=== PATIENT | male | born 1995 | race Caucasian/White ===

== ENCOUNTER 2024-09-09 14:27 | Emergency (ER) | payer OTHER ==
[2024-09-09 14:34] VITALS: BP 128/66; PULSE 83; RESP 18; TEMP 97.8
[2024-09-09 15:36] LABS: Basophils % (A) 0 %; Eosinophils % (A) 0 %; HCT 45.9 % (39.0-53.0); HGB 14.7 gm/dL (13.0-17.5); Lymphocytes # (A) 1.5 k/uL (1.0-4.8); Lymphocytes % (A) 11 %; MCH 29.8 pg (25.0-35.0); MCHC 32.1 g/dL (31.0-37.0); MCV 92.8 fL (80.0-100.0); Mean Platelet Volume 7.7; Monocytes # (A) 0.9 k/uL (0-1.0); Monocytes % (A) 7 %; Neutrophils # (A) 10.8 k/uL (1.3-7.7); Neutrophils % (A) 80 %; Platelet Count 245 k/uL (150-450); RBC 4.95 m/uL (4.30-5.90); WBC 13.5 k/uL (3.8-10.6)
--- NOTE | 2024-09-09 15:40 | ED ---
Abdominal Pain HPI - General Chief Complaint: Abdominal Pain Stated Complaint: Abd Pain Time Seen by Provider: 09/09/24 15:29 Source: patient, EMS, RN notes reviewed, old records reviewed Mode of arrival: EMS Limitations: no limitations - History of Present Illness Initial Comments: This is a 29-year-old male to the ER today. He presents today for evaluation regards to abdominal pain epigastric abdominal pain after eating tonight. Patient has history of ulcers but this was 20 years ago patient has mild nausea no vomiting no fevers, patient comes from [place] MD Complaint: abdominal pain -: hour(s) Location: epigastric Radiation: epigastric Migration to: epigastric Severity: mild Severity scale (1-10): 4 Quality: cramping, stabbing Consistency: intermittent Improves With: nothing Worsens With: nothing Associated Symptoms: nausea Treatments Prior to Arrival: other (0) - Related Data Allergies Allergy/AdvReac Type Severity Reaction Status Date / Time No Known Allergies Allergy Verified 09/09/24 14:34 Review of Systems ROS Statement: Those systems with pertinent positive or pertinent negative responses have been documented in the HPI. ROS Other: All systems not noted in ROS Statement are negative. Past Medical History Additional Past Medical History / Comment(s): Esophageal ulcers History of Any Multi-Drug Resistant Organisms: None Reported Past Surgical History: No Surgical Hx Reported Past Psychological History: No Psychological Hx Reported Smoking Status: Current every day smoker Past Alcohol Use History: None Reported Past Drug Use History: Marijuana, Opiates General Exam Limitations: no limitations General appearance: alert, in no apparent distress Head exam: Present: atraumatic, normocephalic, normal inspection Eye exam: Present: normal appearance, PERRL, EOMI. Absent: scleral icterus, conjunctival injection, periorbital swelling ENT exam: Present: normal exam, mucous membranes moist Neck exam: Present: normal inspection. Absent: tenderness, meningismus, lymphadenopathy Respiratory exam: Present: normal lung sounds bilaterally. Absent: respiratory distress, wheezes, rales, rhonchi, stridor Cardiovascular Exam: Present: regular rate, normal rhythm, normal heart sounds. Absent: systolic murmur, diastolic murmur, rubs, gallop, clicks GI/Abdominal exam: Present: soft, normal bowel sounds. Absent: distended, tenderness, guarding, rebound, rigid Extremities exam: Present: normal inspection, full ROM, normal capillary refill. Absent: tenderness, pedal edema, joint swelling, calf tenderness Back exam: Present: normal inspection Neurological exam: Present: alert, oriented X3, CN II-XII intact Psychiatric exam: Present: normal affect, normal mood Skin exam: Present: warm, dry, intact, normal color. Absent: rash Course Vital Signs 09/09/24 14:30 Temperature 97.8 F Pulse Rate 83 Respiratory 18 Rate Blood Pressure 128/66 O2 Sat by Pulse 98 Oximetry - Reevaluation(s) Reevaluation #1: 09/09/24 16:44 Medical records reviewed Reevaluation #2: 09/09/24 16:44 Patient symptoms unchanged Reevaluation #3: 09/09/24 16:44 Patient informed of results and questions answered Reevaluation #4: Was pt. sent in by a medical professional or institution ([facility], [facility], urgent care, hospital, or jail...) When possible be specific @ -no Did you speak to anyone other than the patient for history (EMS, parent, family, police, friend...)? What history was obtained from this source @ -no Did you review nursing and triage notes (agree or disagree)? Why? @ -agree Are old charts reviewed (outside hosp., previous admission, EMS record, old EKG, old radiological studies, urgent care reports/EKG's, jail records)? Report findings @ -yes Differential Diagnosis (chest pain, altered mental status, abdominal pain women, abdominal pain men, vaginal bleeding, weakness, fever, dyspnea, syncope, headache, dizziness, GI bleed, back pain, seizure, CVA, palpatations, mental health, musculoskeletal)? @ -prior EKG interpreted by me (3pts min.). @ -yes X-rays interpreted by me (1pt min.). @ -yes negative for acute disease CT interpreted by me (1pt min.). @ -no U/S interpreted by me (1pt. min.). @ -no What testing was considered but not performed or refused? (CT, X-rays, U/S, labs)? Why? @ -none What meds were considered but not given or refused? Why? @ -none Did you discuss the management of the patient with other professionals (professionals i.e. , [facility], [facility], lab, RT, psych nurse, social secretary, lion tamer, teacher, mortgage loan officer, case aide)? Give summary @ -no Was smoking cessation discussed for >3mins.? @ -no Was critical care preformed (if so, how long)? @ -no Were there social determinants of health that impacted care today? How? (Homelessness, low income, unemployed, alcoholism, drug addiction, transportation, low edu. Level, literacy, decrease access to med. care, longterm, rehab)? @ -none Was there de-escalation of care discussed even if they declined (Discuss DNR or withdrawal of care, Hospice)? DNR status @ -no What co-morbidities impacted this encounter? (DM, HTN, Smoking, COPD, CAD, Cancer, CVA, ARF, Chemo, Hep., AIDS, mental health diagnosis, sleep apnea, morbid obesity)? @ -none Was patient admitted / discharged? Hospital course, mention meds given and route, prescriptions, significant lab abnormalities, going to OR and other pertinent info. @ - Undiagnosed new problem with uncertain prognosis? @ -no Drug Therapy requiring intensive monitoring for toxicity (Heparin, Nitro, Insulin, Cardizem)? @ -no Were any procedures done? @ -no Diagnosis/symptom? @ - Acute, or Chronic, or Acute on Chronic? @ -Acute Uncomplicated (without systemic symptoms) or Complicated (systemic symptoms)? @ -Complicated Side effects of treatment? @ -no Exacerbation, Progression, or Severe Exacerbation? @ -exacerbation Poses a threat to life or bodily function? How? (Chest pain, USA, SC, pneumonia, PE, COPD, DKA, ARF, appy, cholecystitis, CVA, Diverticulitis, Homicidal, Suici taylor, threat to staff... and all critical care pts) @ -yes Reevaluation #5: Differential Abdominal Pain Men: Appendicitis, cholecystitis, diverticulosis, ischemic bowel, pancreatitis, hepatitis, UTI, gastroenteritis, AAA, incarcerated hernia, bowel obstruction, constipation, inflammatory bowel, hepatitis, peptic ulcer disease, splenic infarction, perforated viscus, testicular torsion, this is not meant to be an all-inclusive list Medical Decision Making - Medical Decision Making 29 male for abdominal pain. Likely gastritis patient has no acute findings here in the ER and can be discharged home - Lab Data Result diagrams: 09/09/24 15:19 09/09/24 15:19 Lab Results 09/09/24 09/09/24 09/09/24 Range/Units 15:19 15:19 15:19 WBC 13.5 H (3.8-10.6) k/uL RBC 4.95 (4.30-5.90) m/uL Hgb 14.7 (13.0-17.5) gm/dL Hct 45.9 (39.0-53.0) % MCV 92.8 (80.0-100.0) fL MCH 29.8 (25.0-35.0) pg MCHC 32.1 (31.0-37.0) g/dL RDW 13.0 (11.5-15.5) % Plt Count 245 (150-450) k/uL MPV 7.7 Neutrophils % 80 % Lymphocytes % 11 % Monocytes % 7 % Eosinophils % 0 % Basophils % 0 % Neutrophils # 10.8 H (1.3-7.7) k/uL Lymphocytes # 1.5 (1.0-4.8) k/uL Monocytes # 0.9 (0-1.0) k/uL Eosinophils # 0.0 (0-0.7) k/uL Basophils # 0.0 (0-0.2) k/uL Sodium 142 (137-145) mmol/L Potassium 4.4 (3.5-5.1) mmol/L Chloride 106 (98-107) mmol/L Carbon Dioxide 29 (22-30) mmol/L Anion Gap 7 mmol/L BUN 10 (9-20) mg/dL Creatinine 0.84 (0.66-1.25) mg/dL Est GFR (CKD-EPI)AfAm >90 (>60 ml/min/1.73 sqM) Est GFR (CKD-EPI)NonAf >90 (>60 ml/min/1.73 sqM) Glucose 94 (74-99) mg/dL Plasma Lactic Acid Andrew 0.8 (0.7-2.0) mmol/L Calcium 9.3 (8.4-10.2) mg/dL Total Bilirubin 0.4 (0.2-1.3) mg/dL AST 21 (17-59) U/L ALT 13 (4-49) U/L Alkaline Phosphatase 46 (38-126) U/L Total Protein 6.7 (6.3-8.2) g/dL Albumin 4.2 (3.5-5.0) g/dL Amylase 62 (30-110) U/L Lipase 57 (23-300) U/L Urine Color Urine Appearance (Clear) Urine pH (5.0-8.0) Ur Specific Ewing (1.001-1.035) Urine Protein (Negative) Urine Glucose (UA) (Negative) Urine Ketones (Negative) Urine Blood (Negative) Urine Nitrite (Negative) Urine Bilirubin (Negative) Urine Urobilinogen (<2.0) mg/dL Ur Leukocyte Esterase (Negative) Urine RBC (0-5) /hpf Calcium Oxalate Crystal (None) /hpf Urine Bacteria (None) /hpf Urine Mucus (None) /hpf Urine Yeast (Budding) (None) /hpf 09/09/24 Range/Units 15:19 WBC (3.8-10.6) k/uL RBC (4.30-5.90) m/uL Hgb (13.0-17.5) gm/dL Hct (39.0-53.0) % MCV (80.0-100.0) fL MCH (25.0-35.0) pg MCHC (31.0-37.0) g/dL RDW (11.5-15.5) % Plt Count (150-450) k/uL MPV Neutrophils % % Lymphocytes % % Monocytes % % Eosinophils % % Basophils % % Neutrophils # (1.3-7.7) k/uL Lymphocytes # (1.0-4.8) k/uL Monocytes # (0-1.0) k/uL Eosinophils # (0-0.7) k/uL Basophils # (0-0.2) k/uL Sodium (137-145) mmol/L Potassium (3.5-5.1) mmol/L Chloride (98-107) mmol/L Carbon Dioxide (22-30) mmol/L Anion Gap mmol/L BUN (9-20) mg/dL Creatinine (0.66-1.25) mg/dL Est GFR (CKD-EPI)AfAm (>60 ml/min/1.73 sqM) Est GFR (CKD-EPI)NonAf (>60 ml/min/1.73 sqM) Glucose (74-99) mg/dL Plasma Lactic Acid Andrew (0.7-2.0) mmol/L Calcium (8.4-10.2) mg/dL Total Bilirubin (0.2-1.3) mg/dL AST (17-59) U/L ALT (4-49) U/L Alkaline Phosphatase (38-126) U/L Total Protein (6.3-8.2) g/dL Albumin (3.5-5.0) g/dL Amylase (30-110) U/L Lipase (23-300) U/L Urine Color Yellow Urine Appearance Turbid (Clear) Urine pH 7.0 (5.0-8.0) Ur Specific Ewing 1.032 (1.001-1.035) Urine Protein 1+ H (Negative) Urine Glucose (UA) Negative (Negative) Urine Ketones Negative (Negative) Urine Blood Negative (Negative) Urine Nitrite Negative (Negative) Urine Bilirubin Negative (Negative) Urine Urobilinogen 3.0 (<2.0) mg/dL Ur Leukocyte Esterase Negative (Negative) Urine RBC 3 (0-5) /hpf Calcium Oxalate Crystal Moderate H (None) /hpf Urine Bacteria Rare H (None) /hpf Urine Mucus Few H (None) /hpf Urine Yeast (Budding) Many H (None) /hpf - Radiology Data Radiology results: report reviewed (Ultrasound gallbladder negative for acute disease), image reviewed Disposition Clinical Impression: Abdominal pain, Gastritis Disposition: HOME SELF-CARE Condition: Good Instructions (If sedation given, give patient instructions): Gastritis (ED) Is patient prescribed a controlled substance at d/c from ED?: No Referrals: None,Stated [Primary Care Provider] - 1-2 days Time of Disposition: 16:45
[2024-09-09 15:46] LABS: ALT 13 U/L (4-49); African American GFR (CKD) >90 (>60 ml/min/1.73 sqM); Albumin 4.2 g/dL (3.5-5.0); Amylase 62 U/L (30-110); Anion Gap 7 mmol/L; Appearance,Urine Turbid (Clear); Bacteria,Urine Rare /hpf; Bilirubin,Urine Negative (Negative); Blood Urea Nitrogen 10 mg/dL (9-20); Blood,Urine Negative (Negative); Budding Yeast,Urine Many /hpf; Calcium 9.3 mg/dL (8.4-10.2); Calcium Oxalate Crystals,Urine Moderate /hpf; Carbon Dioxide 29 mmol/L (22-30); Chloride 106 mmol/L (98-107); Color,Urine Yellow; Glucose 94 mg/dL (74-99); Glucose,Urine (UA) Negative (Negative); Ketones,Urine Negative (Negative); Leukocyte Esterase,Urine Negative (Negative); Lipase 57 U/L (23-300); Mucus,Urine Few /hpf; Nitrite,Urine Negative (Negative); Non-African American GFR(CKD) >90 (>60 ml/min/1.73 sqM); Protein,Urine 1+ (Negative); RBC,Urine 3 /hpf (0-5); Sodium 142 mmol/L (137-145); Specific Gravity,Urine 1.032 (1.001-1.035); Total Bilirubin 0.4 mg/dL (0.2-1.3); Total Protein 6.7 g/dL (6.3-8.2)
[2024-09-09 15:52] LABS: AST 21 U/L (17-59); Alkaline Phosphatase 46 U/L (38-126); Potassium 4.4 mmol/L (3.5-5.1)
--- NOTE | 2024-09-09 16:23 | US ---
EXAMINATION TYPE: US gallbladder DATE OF EXAM: 09/09/2024 COMPARISON: NONE CLINICAL INDICATION: Male, 29 years old with history of pain; Pt states ABD pain that started today TECHNIQUE: Grayscale and color Doppler imaging of the right upper quadrant was performed. FINDINGS: EXAM MEASUREMENTS: Liver Length: 19.1 cm Gallbladder Wall: 0.3 cm CBD: 0.5 cm Right Kidney: 12.2 x 4.6 x 5.1 cm BUTCHER SCULLION NOTES: Pancreas: wnl, tail obscured by overlying bowel gas Liver: Enlarged Gallbladder: Contracted- pt not NPO. Gallbladder wall is borderline thickening at 0.3 cm which can b e related to the contracted gallbladder. Evidence for sonographic Maguire's sign: No CBD: wnl Right Kidney: No evidence of hydro, possible echogenic foci at lower pole= 2.5 x 2.8 cm IMPRESSION: 1. Other may be a large nonobstructing renal stone inferior pole right kidney. 2. [facility], Workstation: [facility], 09/09/2024 4:21 PM
[2024-09-09] MEDS: PANTOPRAZOLE 40 MG/10 ML VIAL IVP STA (17:51)
[2024-09-09] MEDS: MAG HYDROX/AL HYDROX/SIMETH 30 ML, HYOSCYAMINE ELIXIR 10 ML PO STA (17:51)
[2024-09-09] MEDS: KETOROLAC 15 MG/ML 1 ML VIAL IVP STA (17:52)
[2024-09-09] MEDS: ONDANSETRON 4 MG/2 ML VIAL IVP STA (17:55)
[2024-09-09] MEDS: SODIUM CHLORIDE 0.9% 500 ML 500 ML IV STA (17:57)
== END 2024-09-09 18:10 | disposition home or self-care (01) ==
LOC: EC 14:27
CPT/HCPCS: 36415; 76705; 80053; 81001; 82150; 83605; 83690; 85025; 96374; 96375; 99284